=== PATIENT | female | born 2000 | race African-American/Black ===

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

== ENCOUNTER 2024-01-15 20:52 | Emergency (ER) | payer SELFPAY ==
[2024-01-16 05:59] LABS: Chlam.trachomatis by PCR,Urine DETECTED (NotDetected); GC N.gonorrhoeae PCR,UrineVOID Not Detected (NotDetected)
== END 2024-01-15 21:49 | disposition home or self-care (01) ==
LOC: ERS 20:52
DX: Z20.2 Contact with and (suspected) exposure to infections with a predominantly sexual mode of transmission (principal)
CPT/HCPCS: 87491; 87591; 99283